=== PATIENT | male | born 1970 | race Caucasian/White ===

== ENCOUNTER → 2020-04-27 | Outpatient (CLI) | payer OTHER | LOC: EXRD 10:10 | DX: M54.5 Low back pain (principal); M25.572 Pain in left ankle and joints of left foot | CPT/HCPCS: 72110; 73030; 73610 ==

== ENCOUNTER → 2020-06-09 | Outpatient (CLI) | payer OTHER, MEDICARE | LOC: KOH-I 11:07 | DX: M25.572 Pain in left ankle and joints of left foot (principal); G89.29 Other chronic pain; R93.7 Abnormal findings on diagnostic imaging of other parts of musculoskeletal system | CPT/HCPCS: 73721 ==

== ENCOUNTER → 2020-06-29 | Outpatient (CLI) | payer OTHER | LOC: EXRD 09:03 | DX: M79.89 Other specified soft tissue disorders (principal) | CPT/HCPCS: 73130 ==

== ENCOUNTER → 2020-09-08 | Outpatient (CLI) | payer OTHER | LOC: EXRD 14:21 | DX: M54.5 Low back pain (principal); M54.2 Cervicalgia; M54.6 Pain in thoracic spine | CPT/HCPCS: 72040; 72070; 72100 ==

== ENCOUNTER 2021-02-04 11:34 | Emergency (ER) | payer OTHER ==
[2021-02-04 13:35] LABS: BORDETELLA PARAPERTUSSIS Not Detected (Not Detectd); BORDETELLA PERTUSSIS Not Detected (Not Detectd); CHLAMYDIA PNEUMONIAE Not Detected (Not Detectd); CORONAVIRUS HKU1 Not Detected (Not Detectd); CORONAVIRUS NL63 Not Detected (Not Detectd); CORONAVIRUS OC43 Not Detected (Not Detectd); CORONOAVIRUS 229E Not Detected (Not Detectd); HUMAN METAPNEUMOVIRUS Not Detected (Not Detectd); HUMAN RHINOVIRUS/ENTEROVIRUS Not Detected (Not Detectd); INFLUENZA A Not Detected (Not Detectd); INFLUENZA B Not Detected (Not Detectd); MYCOPLASMA PNEUMONIAE Not Detected (Not Detectd); PARAINFLUENZA VIRUS 1 Not Detected (Not Detectd); PARAINFLUENZA VIRUS 2 Not Detected (Not Detectd); PARAINFLUENZA VIRUS 3 Not Detected (Not Detectd); PARAINFLUENZA VIRUS 4 Not Detected (Not Detectd); RESPIRATORY SYNCYTIAL VIRUS Not Detected (Not Detectd)
[2021-02-04 13:39] LABS: HEMOGLOBIN 16.6 gm/dl (14.0-17.5); RED BLOOD COUNT 5.34 M/UL (4.20-5.50); WHITE BLOOD COUNT 6.6 K/UL (4.5-11.0)
[2021-02-04 14:01] LABS: BUN/CREATININE RATIO 16 (0-10)
[2021-02-04 14:36] LABS: SARS-CoV-2 NOT DETECTED (Not Detectd)
[2021-02-04] MEDS ORDERED: ZOFRAN 4 MG TAB4 MG PO (14:53)
== END 2021-02-04 15:15 | disposition home or self-care (01) ==
LOC: ER1 11:34
PROVIDERS: Emergency Medicine
DX: R51.9 Headache, unspecified (principal); R19.7 Diarrhea, unspecified; Z20.822 Contact with and (suspected) exposure to COVID-19
CPT/HCPCS: 70450; 71045; 80053; 81001; 83605; 85025; 87040; 87633; 99284

== ENCOUNTER → 2021-11-11 | Outpatient (CLI) | payer OTHER ==
[~2021-11-11] MED LIST: ZOFRAN 4 MG TAB4 MG PO
== END ==
LOC: EXRD 08:32
DX: M25.561 Pain in right knee (principal); M17.11 Unilateral primary osteoarthritis, right knee
CPT/HCPCS: 73564